=== PATIENT | female | born 1990 | race Two or more races ===

== ENCOUNTER 2023-06-10 07:30 | Inpatient (IN) | payer MEDICAID, SELFPAY ==
[2023-06-10] VITALS (28 sets, daily range): BP systolic 112–155; BP diastolic 60–100; PULSE 87–113; RESP 16–20; TEMP 36.3–37.2; O2SAT 95–98; BMI 36.9
[2023-06-10] MEDS: Lactated Ringers 1,000 ML 50 ML IV (08:15)
[2023-06-10] MEDS: 0.9% Normal Saline Single 100 ML IV.SOLN. INTRA-UTER (08:30)
--- NOTE | 2023-06-10 08:31 | PCM.HP.OB ---
HPI - General General Date of Admission: 06/10/23 Date of Service: 06/10/23 HPI Narrative CAMILA QUIROS, is a 32 F who presents for induction. Maternal Data Information Final LEÓN: 06/12/23 Gestational age: 39&5 [facility] Medical History Asthma Autoimmune disease HPV (human papilloma virus) infection Allergy/AdvReac Type Severity Reaction Status Date / Time peanut Allergy Mild Hives Verified 06/10/23 08:39 Social History Smoking Status: Never smoker History Elective abortions Hx Para 3 Spontaneous abortions Hx # Term Pregnancies Ectopic pregnancies Hx # Pregnancies Multiple births # of living children NST FHR Rate Baby A Baseline: 135 Variability:: Moderate Accelerations:: 15 x 15 Decelerations:: None NST Reactive:: Yes Uterine Activity:: quiet Vital Signs Vital Signs Vital Signs: 06/10/23 07:54 06/10/23 07:54 06/10/23 07:53 Pulse Rate 107 H 113 H Blood Pressure 139/100 H BP Systolic 139 BP Diastolic 100 Pulse Ox 06/10/23 07:53 06/10/23 07:58 06/10/23 07:58 Pulse Rate 100 Blood Pressure 146/89 H BP Systolic 146 BP Diastolic 89 Pulse Ox 97 Weight Weight: 215 lb 2 oz Body Mass Index (BMI) 36.9 Physical Exam Const alert, oriented x3 and no apparent distress Chest inspection of chest normal Resp normal respiratory effort GI soft to palpation, non-tender and non-distended Inspection: gravid external exam normal Narrative: cvx - 1.5/70/-3 Extremity normal to inspection Labs Labs Labs: Blood Type Pending Antibody Screen Pending Hct 37.3 % (37-47) Hgb 12.4 g/dL (12.0-15.0) Syphilis Total Ab Pending Assessment & Plan (1) Gestational hypertension: QUALIFIERS: Trimester: third trimester Qualified Code(s): O13.3 - Gestational [-induced] hypertension without significant proteinuria, third trimester COMMENT: 32yo @ 39&5 PLAN: Plan Admit to L&D Gestational hypertension - labs sent. BP's mild range. Induction - intracervical barkley placed and will start pitocin. GBS negative Pain - declines epidural EFW - less than 4500g and patient with adequate pelvis Routine care
[2023-06-10] MEDS: Oxytocin 15 Units/NS 250ml 15 UNITS/250 ML IV.SOLN 2 UNITS IV (08:33)
[2023-06-10 08:36] LABS: Absolute Lymphocyte Count 1.07 X10^3/uL (0.83-4.51); Absolute Neutrophil Count 5.4 X10^3/uL (2.0-7.7); Basophil# 0.03 X10^3/uL; Basophil% 0.4 % (0-1); Eosinophil# 0.06 X10^3/uL; Eosinophils% 0.9 % (0-5); Hematocrit 37.3 % (37-47); Hemoglobin 12.4 g/dL (12.0-15.0); Lymphocyte # 1.07 X10^3/ul (0.83-4.51); Lymphocyte % 15.2 % (19-41); Mean Corp Hgb Conc 33.2 g/dL (32-36); Mean Corpuscular Hgb 31.1 pg (27.0-32.0); Mean Corpuscular Volume 93.5 fL (81-99); Mean Platelet Vol. 11.4 fl (6.2-12.0); Monocyte# 0.44 X10^3/uL; Monocyte% 6.2 % (0-10); NRBC Flagged by Analyzer 0 % (0-5); Neutrophil # 5.42 X10^3/uL (2.7-7.7); Neutrophil % 76.9 % (47-70); Platelet Count 156 K/mm3 (150-450); RBC Distribution Width CV 13.2 % (11.6-14.6); RBC Distribution Width SD 45.2 fl (35.1-43.9); Red Blood Count 3.99 M/mm3 (4.2-5.4); White Blood Count 7.1 K/mm3 (4.4-11.0)
[2023-06-10 08:47] LABS: AST(SGOT) 19 U/L (15-37); Alanine Aminotransfer ALT/SGPT 16 U/L (13-56); EST Glomerular Filtration Rate 151 mL/min (>60); Est Glom Filt Rate - Afr Amer 183 mL/min (>60); Estimated Creatinine Clearance 184.92 ml/min; Uric Acid 5.1 mg/dL (2.6-6.0)
[2023-06-10 09:07] LABS: Syphilis Antibodies Non-reactive
[2023-06-10 10:05] LABS: Protein, Urine (Random) 15.7 mg/dL (<11.9); Protein:Creat Ratio 547 mg/g CRE (0-200)
--- NOTE | 2023-06-10 12:46 | PN.OBGYN_ITS ---
Subjective Subjective Patient feeling ctxs and coping Objective Data Objective Data Vital Signs: Vital Signs Temp Pulse Resp BP Pulse Ox 97.6 F L 108 H 16 155/91 H 97 06/10/23 12:08 06/10/23 12:08 06/10/23 12:08 06/10/23 12:08 06/10/23 07:53 Weight: 215 lb 2 oz Body Mass Index (BMI) 36.9 Intake & Output: Intake and Output for Last 24 Hours 06/08/23 06/09/23 06/10/23 23:59 23:59 23:59 Intake Total 14.57 / 14.57 Balance 14.57 / 14.57 Lab / Micro Data 06/10/23 08:10 06/10/23 08:10 Labs: Laboratory Results - last 24 hr 06/10/23 08:10: WBC 7.1, RBC 3.99 L, Hgb 12.4, Hct 37.3, MCV 93.5, MCH 31.1, MCHC 33.2, RDW Std Deviation 45.2 H, RDW Coeff of Julianna 13.2, Plt Count 156, MPV 11.4, Immature Gran % (Auto) 0.400, Neut % (Auto) 76.9 H, Lymph % (Auto) 15.2 L, Crawford % (Auto) 6.2, Eos % (Auto) 0.9, Baso % (Auto) 0.4, Absolute Neuts (auto) 5.4, Absolute Lymphs (auto) 1.07, Nucleated RBC % 0, Creatinine 0.50 L, Estim Creat Clear Calc 184.92, Est GFR (MDRD) Af Amer 183, Est GFR (MDRD) Non-Af 151, Uric Acid 5.1, AST 19, ALT 16, U Random Total Protein 15.7 H, Urine Creatinine 28.70, Protein/Creatinin Ratio 547 H, Syphilis Total Ab Non-reactive, Blood Type A POSITIVE, Antibody Screen NEGATIVE Physical Exam Const alert, oriented x3 and no apparent distress Narrative: cvx - 5/70/-3, AROM clear fluid NST FHR Rate Baby A Baseline: 135 Variability:: Moderate Accelerations:: 15 x 15 Decelerations:: None Uterine Activity:: Q2min Assessment & Plan (1) Preeclampsia: QUALIFIERS: Trimester: third trimester Qualified Code(s): O14.93 - Unspecified pre-eclampsia, third trimester PLAN: Plan Continue pitocin induction Continue to monitor BP's. Discussed possible need for magnesium sulfate.
[2023-06-10] MEDS: Ondansetron 4 MG/2 ML Vial IV (16:27)
--- NOTE | 2023-06-10 17:00 | EX.PCM.OBRPT ---
Maternal Data Information Final LEÓN: 06/12/23 Gestational age: 39&5 Vaginal Delivery Maternal Presentation Maternal Presentation: Medically Indicated Induction Medical Reason for Induction: Preeclampsia, eclampsia Operative Information Date of Procedure: 06/10/23 Pre-Operative Diagnosis: Mild preeclampsia Post-Operative Diagnosis: Same Surgery / Procedure Performed: Spontaneous Vaginal Delivery Type of Anesthesia: None Estimated Blood Loss: 350ml Findings Description of Procedure: Patient prepped & draped when C/C/+2. She pushed well to deliver the head. head gently guided to allow delivery of anterior and posterior shoulders. No excess traction placed on head. Body delivered and 3VC clamped & cut in delayed fashion. Placenta delivered with gentle traction and good uterine tone obtained. Presentation: GIORGIO Amniotic Membrane Rupture Type: Artificial Amniotic Fluid Description: Clear Placental Delivery Description: Expressed Placenta Disposition: [facility] Specimen(s) Removed: Placenta Cord Vessel Description: 3 Vessels Cord Entanglement: None A Gender: Male (Wyatt) (1 minute): 8 (5 minute): 9 Delayed Cord Clamping: Yes Post Vaginal Delivery Medications Given After Delivery: IV Pitocin Episiotomy Description: None Laceration: None Complication Complications: None
[2023-06-10] MEDS: Oxytocin 15 Units/NS 250ml 15 UNITS/250 ML IV.SOLN 83 UNITS IV (17:30)
[2023-06-10] MEDS: Ibuprofen 600 MG Tablet PO (19:11)
[2023-06-11] VITALS (18 sets, daily range): BP systolic 133–149; BP diastolic 75–96; PULSE 73–95; RESP 16–18; TEMP 36.2–36.7; O2SAT 98–99
--- NOTE | 2023-06-11 07:19 | PCM.PN.OB ---
Subjective Subjective Denies complaints Objective Data Objective Data Vital Signs: Vital Signs Temp Pulse Resp BP Pulse Ox O2 Del Method 98.3 F 78 16 133/86 H 96 Room Air 06/10/23 23:45 06/11/23 04:38 06/10/23 23:45 06/11/23 04:38 06/10/23 23:45 06/10/23 23:45 Oxygen Delivery Method Room Air Weight: 215 lb 2 oz Body Mass Index (BMI) 36.9 Intake & Output: Intake and Output for Last 24 Hours 06/09/23 06/10/23 06/11/23 23:59 23:59 23:59 Intake Total 1500.00 / 1500.00 Output Total 550 / 550 Balance 950.00 / 950.00 Lab / Micro Data 06/10/23 08:10 06/10/23 08:10 Labs: Laboratory Results - last 24 hr 06/10/23 08:10: WBC 7.1, RBC 3.99 L, Hgb 12.4, Hct 37.3, MCV 93.5, MCH 31.1, MCHC 33.2, RDW Std Deviation 45.2 H, RDW Coeff of Julianna 13.2, Plt Count 156, MPV 11.4, Immature Gran % (Auto) 0.400, Neut % (Auto) 76.9 H, Lymph % (Auto) 15.2 L, Bennett % (Auto) 6.2, Eos % (Auto) 0.9, Baso % (Auto) 0.4, Absolute Neuts (auto) 5.4, Absolute Lymphs (auto) 1.07, Nucleated RBC % 0, Creatinine 0.50 L, Estim Creat Clear Calc 184.92, Est GFR (MDRD) Af Amer 183, Est GFR (MDRD) Non-Af 151, Uric Acid 5.1, AST 19, ALT 16, U Random Total Protein 15.7 H, Urine Creatinine 28.70, Protein/Creatinin Ratio 547 H, Syphilis Total Ab Non-reactive, Blood Type A POSITIVE, Antibody Screen NEGATIVE Physical Exam Const alert, oriented x3 and no apparent distress HEENT normocephalic GI soft to palpation, non-tender and non-distended GI Narrative: fundus firm, mid & below umbilicus Extremity normal to inspection and no calf tenderness Assessment & Plan (1) Preeclampsia: QUALIFIERS: Trimester: third trimester Qualified Code(s): O14.93 - Unspecified pre-eclampsia, third trimester COMMENT: PPD#1 PLAN: Plan BP's normal PP and will continue to monitor. Routine care Possible discharge home tomorrow
[2023-06-11] MEDS: Ibuprofen 600 MG Tablet PO (08:23)
--- NOTE | 2023-06-11 10:59 | NURSING ---
This morning the patient's vitals were BP 138/89, HR 92, Temp 98.1, O2 98%. Recheck BP at 840 was 144/83, pt denies headache, vision changes and RUQ pain. I left a message with Mariana MUIR for the physician at 850, will continue to monitor.
--- NOTE | 2023-06-11 17:49 | NURSING ---
Patient's BP was 147/96 her recheck at 1725 was 141/95 an pt denies any symptoms. She is currently , spoke with the professional organizer and will recheck when she is done feeding.
--- NOTE | 2023-06-11 17:54 | NURSING ---
Patient had a BP of 147/96, her recheck was 141/95. Patient denies any symptoms and is currently . I spoke with furnace charger and we will recheck her BP when she is done feeding.
[2023-06-12 01:03] VITALS: BP 139/89; PULSE 85
[2023-06-12 01:08] VITALS: BP 139/89; PULSE 80; RESP 14; TEMP 36.3; O2SAT 98
[2023-06-12 08:00] VITALS: BP 145/88; PULSE 80; RESP 14; TEMP 36.4; O2SAT 97
--- NOTE | 2023-06-12 08:05 | PCM.PROGNOTE ---
Subjective Subjective patient seen at bedside, doing well. Patient reports good pain control. lochia mild. denies ALARCON, visual changes or RUQ pain. Objective Data Objective Data Vital Signs: Vital Signs Temp Pulse Resp BP Pulse Ox O2 Del Method 97.4 F L 80 14 139/89 H 98 Room Air 06/12/23 01:08 06/12/23 01:08 06/12/23 01:08 06/12/23 01:08 06/12/23 01:08 06/12/23 01:08 Oxygen Delivery Method Room Air Weight: 97.579 kg Body Mass Index (BMI) 36.9 Intake & Output: Intake and Output for Last 24 Hours 06/10/23 06/11/23 06/12/23 23:59 23:59 23:59 Intake Total 1500.00 / 1500.00 Output Total 550 / 550 Balance 950.00 / 950.00 Lab / Micro Data 06/10/23 08:10 06/10/23 08:10 Physical Exam Const alert and oriented x3 General Appearance: cooperative HEENT normocephalic Neck General: normal visual inspection GI soft to palpation and non-distended GI Narrative: Fundus firm Extremity normal to inspection and no calf tenderness Skin no rashes or lesions noted Neuro oriented x3 and CN's II-XII intact bilaterally Psych mental status grossly normal Assessment & Plan Assessment/Plan (1) Preeclampsia: QUALIFIERS: Trimester: third trimester Qualified Code(s): O14.93 - Unspecified pre-eclampsia, third trimester (2) Vaginal delivery: PLAN: Plan PPD# 1 , Doing well Routine care pain mgmt ambulation BP- mild range- no treatment needed. Symptoms to report d/w patient. reviewed monitoring bps at home how to check and when to call. will need follow up in office on 06/13 or 06/14 for BP check
--- NOTE | 2023-06-12 08:07 | DCINST_ITS ---
Discharge Instructions Diet Discharge Diet: No restrictions Activity May resume sexual activity in: 6-8 weeks Dressing / Incision Call your doctor if you observe: Fever of 101 or Higher, Inability to urinate, Using more than 1 pad per hour and Uncontrolled pain Follow Up Care Please Follow Up With: Asya Deluca MD When: 1-2 weeks post and again at 6 weeks post . [phone] Test Results: Test results from this visit will be discussed in further detail at your follow- up appointment, if applicable. Discharge Plan Admission Admit Date/Time: 06/10/23 07:30 Attending Provider: Apolonia Ramirez Primary Care Provider: Jc Abrams Discharge Orders/Prescriptions Prescriptions: New acetaminophen 500 mg Tablet 1,000 mg PO Q6H PRN PRN (Reason: Pain 1-10 Or Fever) Qty: 0 0RF ibuprofen 600 mg Tablet 600 mg PO Q6H PRN PRN (Reason: Pain Score 1-10) Qty: 0 0RF Continued PNV cmb#95-ferrous fumarate-FA [] 28 mg iron- 800 mcg tablet 1 tab PO DAILY clobetasol 0.05 % cream 0.0018 g topical DAILY budesonide-formoterol [Symbicort] 160-4.5 mcg/actuation HFA aerosol inhaler 1 puff inhalation BID PRN loratadine 10 mg tablet 10 mg PO DAILY Referrals / Follow Up: Jc Abrams MD [Primary Care Provider] - Disposition Disposition (needs filled in before D/C Order can be placed): Home, Self Care
--- NOTE | 2023-06-12 08:10 | PCM.DC.BLA ---
Discharge Summary Date of Admission: 06/10/23 Date of Discharge: 06/12/23 Summary: pt admitted for IOL for Preeclampisa w/o severe features, progressed for fully dilated delivered vaginally, had uncomplicated vaginal delivery. BPs remained mild. Discharged home on day 2 in stable condition. will be sent home with BP monitoring. Meaningful Use Info Meaningful Use Diagnoses (Choose all that apply): None applicable Discharge Plan Admission Admit Date/Time: 06/10/23 07:30 Attending Provider: Apolonia Ramirez Primary Care Provider: Jc Abrams Discharge Orders/Prescriptions Prescriptions: New acetaminophen 500 mg Tablet 1,000 mg PO Q6H PRN PRN (Reason: Pain 1-10 Or Fever) Qty: 0 0RF ibuprofen 600 mg Tablet 600 mg PO Q6H PRN PRN (Reason: Pain Score 1-10) Qty: 0 0RF Continued PNV cmb#95-ferrous fumarate-FA [] 28 mg iron- 800 mcg tablet 1 tab PO DAILY clobetasol 0.05 % cream 0.0018 g topical DAILY budesonide-formoterol [Symbicort] 160-4.5 mcg/actuation HFA aerosol inhaler 1 puff inhalation BID PRN loratadine 10 mg tablet 10 mg PO DAILY Referrals / Follow Up: Jc Abrams MD [Primary Care Provider] - Disposition Disposition (needs filled in before D/C Order can be placed): Home, Self Care
[2023-06-12 08:41] VITALS: BP 145/88; PULSE 88
== END 2023-06-12 11:15 | disposition home or self-care (01) | DRG 560 ==
PROVIDERS: Admitting Provider Obstetrics & Gynecology; PCP Family Medicine; Visit Provider Obstetrics & Gynecology
DX: O14.04 Mild to moderate pre-eclampsia, complicating childbirth (principal); Z37.0 Single live birth; Z3A.39 39 weeks gestation of pregnancy
CPT/HCPCS: 59025; 59050; 82565; 82570; 84156; 84450; 84460; 84550; 85025; 86780; 86850; 86900; 86901; 99221; J7120; G0378; J2405

== ENCOUNTER → 2023-09-01 | Outpatient (CLI) | payer MEDICAID, SELFPAY ==
--- NOTE | 2023-09-01 16:46 | US_ITS ---
STUDY: SUPERFICIAL ULTRASOUND - RIGHT AXILLARY REGION. REASON FOR EXAM: Female, 33 years old. AXILLARY MASS TECHNIQUE: A superficial ultrasound was performed with real-time and static sutton-scale imaging. COMPARISON: None. FINDINGS: Imaging of the right axilla was obtained. The palpable lump corresponds to a 1.7 cm x 1.5 cm x 0.7 cm mainly cystic with irregular nodular contour and increased color flow. Biopsy recommended. US/Ext Non Vasc Limited/Soft Tiss IMPRESSION: The palpable lump corresponds to a 1.7 cm x 1.5 cm x 0.7 cm hypoechoic predominately cystic structure with irregular nodular larios with increased vascularity. Biopsy recommended. Electronically Signed: Brian Severino MD at 10:12 EDT ,
== END | disposition home or self-care (01) ==
LOC: US 16:41
PROVIDERS: PCP Family Medicine; Referring Provider Family Medicine; Visit Provider Family Medicine
DX: R22.31 Localized swelling, mass and lump, right upper limb (principal)
CPT/HCPCS: 76882

== ENCOUNTER → 2023-11-24 | Outpatient (CLI) | payer MEDICAID, SELFPAY ==
--- NOTE | 2023-11-24 12:28 | US_ITS ---
STUDY: SUPERFICIAL ULTRASOUND - RIGHT AXILLA REASON FOR EXAM: Female, 33 years old. Right axilla mass TECHNIQUE: A superficial ultrasound was performed with real-time and static sutton-scale imaging. COMPARISON: September 01, 2023 FINDINGS: No cystic or solid nodules were observed. There is no free fluid. Previously noted mass is not visualized on current exam. US/Ext Non Vasc Limited/Soft Tiss IMPRESSION: No evidence for cystic or solid mass with apparent resolution of previous nodule If clinically palpable lesion persists CT or MRI recommended for further evaluation Electronically Signed: Kulwant Macias MD at 22:45 EDT ,
== END | disposition home or self-care (01) ==
LOC: US 12:28
PROVIDERS: PCP Family Medicine; Referring Provider Physician Assistant; Visit Provider Physician Assistant
DX: R22.31 Localized swelling, mass and lump, right upper limb (principal)
CPT/HCPCS: 76882